=== PATIENT | male | born 1970 | race Caucasian/White ===

== ENCOUNTER 2023-10-11 01:13 | Emergency (ER) | payer MEDICAID, MEDICARE ==
[2023-10-11 01:56] LABS: BLOOD UREA NITROGEN,BUN 17 mg/dL (7-18); BUN/CREATININE RATIO 13.1 (9-20); CALCIUM 9.2 mg/dL (8.6-10.2); CARBON DIOXIDE,CO2 31 mmol/L (21-32); CHLORIDE,CL 101 mmol/L (100-110); CREATININE 1.3 mg/dL (0.70-1.30); ESTIMATED GFR 67 mL/min (>60); GLUCOSE RANDOM 115 mg/dL (80-116); SODIUM,NA 140 mmol/L (135-145)
[2023-10-11 02:02] LABS: A/G RATIO 0.8; ALANINE AMINOTRANSFERASE,ALT 41 U/L (12-36); ALBUMIN 3.6 g/dL (3.5-5.2); ALKALINE PHOSPHATASE 71 IU/L (56-112); ASPARTATE AMNIOTRANSFERASE,AST 25 IU/L (5-25); BILIRUBIN TOTAL 1.1 mg/dL (0.1-1.3)
[2023-10-11 02:10] LABS: BASOPHILS PERCENT AUTO 0.4 % (0.3-3.8); EOSINOPHILS ABSOLUTE AUTO 0.5 x10-3/uL (0.0-0.6); EOSINOPHILS PERCENT AUTO 4.9 % (0.1-6.8); HEMATOCRIT 42.9 % (38.3-50.1); HEMOGLOBIN 14.7 g/dL (12.9-17.7); LYMPHOCYTES ABSOLUTE AUTO 2.9 x10-3/uL (0.5-4.5); LYMPHOCYTES PERCENT AUTO 28.9 % (15.8-45.3); MEAN CORPUSCULAR HEMOGLOBIN 29.8 pg (27.0-33.3); MEAN CORPUSCULAR HGB CONC 34.3 g/dL (28.7-35.3); MEAN PLATELET VOLUME 6.8 fL (6.7-11.0); MONOCYTES ABSOLUTE AUTO 1.1 x10-3/uL (0.0-1.2); MONOCYTES PERCENT AUTO 10.4 % (5.5-15.2); NEUTROPHILS ABSOLUTE AUTO 5.6 x10-3/uL (1.7-6.9); NEUTROPHILS PERCENT AUTO 55.4 % (40.3-71.8); PLATELET COUNT,PLT 297 x10(3)uL (117-477); RED BLOOD CELL COUNT 4.93 x10(6)uL (3.90-5.90); RED CELL DISTRIBUTION WIDTH 13.5 % (12.4-15.0); WHITE BLOOD CELL COUNT,WBC 10.1 x10-3/uL (3.2-10.1)
[2023-10-11] MEDS: Acetaminophen 500 MG Tab PO ONE (03:24)
[2023-10-11] MEDS: predniSONE 20 MG Tab PO ONE (03:25)
[2023-10-11] MEDS: Ketorolac 30 MG/ML SDV IM ONE (03:26)
== END 2023-10-11 04:15 | disposition home or self-care (01) ==
LOC: FB.ED 01:13
DX: S93.402A Sprain of unspecified ligament of left ankle, initial encounter (principal); M10.9 Gout, unspecified; Z88.6 Allergy status to analgesic agent; Z91.030 Bee allergy status; Z91.041 Radiographic dye allergy status; Z88.0 Allergy status to penicillin; Z88.5 Allergy status to narcotic agent; W19.XXXA Unspecified fall, initial encounter; X50.1XXA Overexertion from prolonged static or awkward postures, initial encounter
CPT/HCPCS: 36415; 73610; 73630; 80053; 84550; 85025; 86140; 96372; 99283; A9270; J1885; J7512